=== PATIENT | male | born 1950 | race Caucasian/White ===

== ENCOUNTER 2025-02-24 13:37 | Emergency (ER) | payer OTHER, SELFPAY ==
[2025-02-24 13:49] VITALS: BP 142/80
[2025-02-24 14:20] LABS: Hematocrit 38.7 % (39.0-52.0); Hemoglobin 12.6 g/dL (13.0-18.0); Mean Corp Hgb Conc. 32.6 g/dL (33.0-37.0); Mean Corpuscular Volume 87.4 fL (80.0-94.0); Nucleated Red Blood Cells % 0 % (-); Platelet Count 236 10^3/uL (130-400); Red Cell Dist. Width 14.2 % (11.5-14.5)
[2025-02-24 14:26] LABS: ALT (SGPT) 16 U/L (0-50); AST (SGOT) 21 U/L (17-59); Albumin 4.0 g/dl (3.5-5.0); Alkaline Phosphatase 80 U/L (38-126); Blood Urea Nitrogen 21 mg/dl (9-20); Calcium 9.1 mg/dl (8.4-10.2); Carbon Dioxide 27 mmol/L (22-30); Chloride 106 mmol/L (98-107); Glucose 71 mg/dl (70-99); Potassium 4.2 mmol/L (3.5-5.1); Sodium 138 mmol/L (135-145); Total Protein 6.5 g/dl (6.3-8.2); eGFR > 60.00
[2025-02-24 14:37] LABS: Troponin I < 0.012 ng/ml
[2025-02-24 14:38] LABS: APTT 26.2 Sec (23.4-35.0); INR 0.98; PT 13.3 Sec (11.4-14.6)
[2025-02-24 19:00] VITALS: BP 168/83
[2025-02-24 19:08] VITALS: BMI 33.0
[2025-02-24 19:22] VITALS: BP 151/137
[2025-02-24 19:30] VITALS: BP 146/83
[2025-02-24 20:00] VITALS: BP 157/80
--- NOTE | 2025-02-24 21:55 | ED.CVA ---
History of Present Illness
General
Chief Complaint: CVA/TIA Symptoms
Source: patient and spouse
Exam Limitations: none
Time Seen by Provider: 02/24/25 19:08
Nursing documentation reviewed up to this point in time: agreed with
Onset of Stroke Symptoms
Onset of symptoms known: Yes
Date of onset of symptoms: 02/23/25
History of Present Illness
History of Present Illness:
Patient with history of paroxysmal atrial fibrillation on Xarelto, presents to ED secondary to sudden onset of right arm numbness and weakness, noted last night starting around 8:30 PM. Symptoms were improving but present when he fell asleep at
midnight. When he woke up this morning, his weakness had resolved completely. Since then, patient has not had recurrent symptoms. Of note, patient states that he had not been taking Xarelto for the past 2 weeks for financial reasons. However, it
has been ordered and he should be receiving treatment at home in the next 2 days. Denies headache. Denies dizziness. Denies difficulty with speech or swallowing. Denies difficulty with ambulation. Per spouse, at bedside, patient is currently at
his baseline. Denies previous history of similar symptoms. Last night, when his symptoms started, he had trouble pressing buttons on his phone.
Past History
Past History
ED Past Medical History: CHF and HTN
ED Past Surgical History: Cardiac
Social History
Tobacco: Former smoker
Alcohol: None
Drug: None
Personal:
Living: with family
Employment: Other
Family History
Family History: Unable to obtain
Review of Systems
Review of Systems
Allergies reviewed?: Yes
All Other Systems: ROS reviewed and negative except as documented in HPI and ROS
Constitutional: Reports no symptoms; Denies fever
Respiratory: Reports no symptoms
Cardiac: Reports no symptoms
ABD/GI: Reports no symptoms
Musculoskeletal: Reports no symptoms
Skin: Reports no symptoms
Neurological: Reports weakness and numbness
Phy Exam
Physical Exam
Physical Exam:
Physical Exam
General: no apparent distress, not acutely ill. afebrile
Head: nc/at. eomi
Neck: supple. normal range of motion.
Heart: s1/s2 regular rate and rhythm
Lungs: no acute respiratory distress. clear bilaterally
Abdomen: normal bowel sounds. not tender.
Neuro: alert and oriented x 3. no focal neurological deficits. normal speech. normal gait
Skin: no rash
Psychiatric: well kept. interactive and cooperative
Extremities: no edema. no calf tenderness.
Course
Orders/Labs/Results
Orders:
Orders
02/24/25 13:54
CT Head W/o Iv Contrast Urgent
Comment:
Reason For Exam: Right arm weakness
02/24/25 14:01
Complete Blood Count/With Diff Urgent
Comprehensive Metabolic Panel Urgent
PTT Urgent
Prothrombin Time Urgent
Troponin I Urgent
02/24/25 19:20
Electrocardiogram (*1) Urgent
Reason for Study: TIA/Stroke
EKG- Treatment ONCE
02/24/25 21:53
Rivaroxaban [Xarelto] 20 mg PO NOW STA
02/24/25 21:55
Rivaroxaban [Xarelto] 20 mg PO NOW STA
Abnormal Lab Results
02/24/25
14:01
RBC 4.43 L 10^6/uL
(4.70-6.10)
Hgb 12.6 L g/dL
(13.0-18.0)
Hct 38.7 L %
(39.0-52.0)
MCHC 32.6 L g/dL
(33.0-37.0)
Absolute Lymphs (auto) 1.0 L 10^3/uL
(1.2-3.4)
Absolute Monos (auto) 0.7 H 10^3/uL
(0.1-0.6)
Lymphocytes % 16.9 L %
(20.5-51.1)
Monocytes % 12.3 H %
(1.7-9.3)
BUN 21 H mg/dl
(9-20)
02/24/25 14:01
02/24/25 14:01
Vital Signs
Initial and Last Documented VS:
Initial Vital Signs
Temp Pulse Resp BP Pulse Ox
98.2 F 57 18 142/80 98
02/24/25 13:49 02/24/25 13:49 02/24/25 13:49 02/24/25 13:49 02/24/25 13:49
Last Documented Vital Signs
Temp Pulse Resp BP Pulse Ox
97.9 F 75 19 157/80 98
02/24/25 19:21 02/24/25 20:15 02/24/25 20:15 02/24/25 20:00 02/24/25 21:55
MDM/Problems Addressed
MDM/Problems Addressed:
History and exam concerning for TIA, likely secondary to patient not having taken his Xarelto for the past 2 weeks. Fortunately, patient's symptoms have resolved completely. CT head report reviewed and discussed with patient.
Discussed with on-call neurology, Dr. Marshall, who does not feel that patient would benefit from inpatient evaluation. Recommends obtaining CT angiogram of head and neck prior to discharge, provided there is no critical stenosis noted. Recommend
restarting Xarelto, as previously prescribed, and discontinuing aspirin.
At this time, however, patient would like to be discharged home. Will obtain carotid study as an outpatient via PCP, which I do believe is reasonable. Return to ED with worsening symptoms. As patient currently does not have Xarelto in his
possession, as it is currently being mailed, patient will be given 1 additional dose of Xarelto, to be taken tomorrow.
*Pulse Oximetry
SaO2: 98
Oxygen Mode of Delivery: Room air
Patient hypoxic: no
*EKG
Interpreted by ED Provider?: Yes
EKG Intrepretation Date: 02/24/25
Heart Rate: 66
Rate: normal
Rhythm: sinus
[place]: normal axis
Interval: normal interval
*Critical Care Note
Total Time (30-74mins, 75-104mins- exclusive of procedures): Not Applicable
ED Attending Note
-
Portions of this chart may have been created with voice recognition software.� Occasional wrong word or��sound alike� substitutions may have occurred due to the inherent limitations of voice recognition software.
Discharge Plan
Departure
Patient Disposition: Home (Routine Discharge)
Date of Disposition: 02/24/25
Time of Disposition: 21:55
Patient with high blood pressure during this ER visit?: Yes
Condition: Fair
Discharge Problem:
Brain TIA
Instructions: Transient Ischemic Attack (DC)
Prescriptions:
No Action
albuterol sulfate 90 mcg/actuation Hfa Aerosol Inhaler
2 puff INHALATION R QID PRN (Reason: sob)
Jardiance 10 mg Tablet
10 mg PO DAILY 30 Days Qty: 30 0RF
Xarelto 20 mg Tablet
20 mg PO QPM 30 Days Qty: 30 0RF
furosemide [Lasix] 40 mg tablet
40 mg PO DAILY Qty: 30 0RF
multivitamin Tablet
1 tab PO DAILY Qty: 0 0RF
lisinopril 20 mg Tablet
20 mg PO DAILY Qty: 0 0RF
allopurinol 100 mg Tablet
100 mg PO DAILY Qty: 0 0RF
spironolactone 25 mg Tablet
25 mg PO DAILY Qty: 0 0RF
carvedilol 3.125 mg Tablet
3.125 mg PO BID Qty: 0 0RF
pravastatin 80 mg Tablet
80 mg PO DAILY Qty: 0 0RF
clonazepam [Klonopin] 2 mg Tablet
2 mg PO HS Qty: 0 0RF
Patient Comments:
01/13/2022: last filled 12/10/21, 60 tabs [facility] days from [facility]
Referrals:
Margi Muniz MD [Family Provider, Internal Medicine]
Stand Alone Forms: Return to Work
Activity Restrictions/Additional Instructions:
As discussed, you must speak with your family doctor and obtain carotid ultrasound as an outpatient, as soon as possible. In the meantime, please continue to take Xarelto as discussed. Please consider return to ED with recurrent or different
symptoms.
Interventions
Interventions:
*Risk Screen - Suicide Last Done: 02/24/25 13:49
*General Assessment Last Done: 02/24/25 19:17
*Neglect/Abuse Screening Last Done: 02/24/25 19:17
*ED- Fall Risk Assessment Last Done: 02/24/25 19:17
*ED COVID-19 Vaccine History Last Done: 02/24/25 19:17
*Nursing Disposition Last Done: 02/24/25 22:09
ED- Pulmonary Assessment Last Done: 02/24/25 19:08
ED- Neurological Assessment Last Done: 02/24/25 19:08
ED- Cardiac Assessment Last Done: 02/24/25 19:08
ED Swallowing Screen Last Done: 02/24/25 19:08
Discharge Date and Time
Discharge Date/Time: 02/24/25 22:10
Print Language: ERITREAN
[2025-02-24] MEDS: XARELTO 20 MG PO ×2 (22:01)
== END 2025-02-24 22:10 | disposition home or self-care (01) ==
LOC: EMR 13:37
PROVIDERS: Emergency Medicine; EMERGENCY PHYSICIAN Emergency Medicine; FAMILY PHYSICIAN Student in an Organized Health Care Education/Training Program
DX: G45.9 Transient cerebral ischemic attack, unspecified (principal); I48.0 Paroxysmal atrial fibrillation; Z79.01 Long term (current) use of anticoagulants; I11.0 Hypertensive heart disease with heart failure; I50.9 Heart failure, unspecified; Z87.891 Personal history of nicotine dependence
CPT/HCPCS: 99284; 70450; 80053; 84484; 85025; 85610; 85730; 93005

== ENCOUNTER 2025-02-25 14:12 | Inpatient (IN) | payer OTHER, SELFPAY ==
[2025-02-25 10:38] VITALS: BP 139/70
--- NOTE | 2025-02-25 12:56 | ED.CVA ---
History of Present Illness
General
Chief Complaint: CVA/TIA Symptoms
Source: patient, spouse and family
Time Seen by Provider: 02/25/25 12:30
Onset of Stroke Symptoms
Onset of symptoms known: Yes
Date of onset of symptoms: 02/25/25
Time of onset of symptoms: 02:00
History of Present Illness
History of Present Illness:
This patient is a 74-year-old male presented the emergency department yesterday after noting right arm weakness and numbness the previous evening at around 8:30 PM. He had an extensive workup here, however left without recommended testing. He was
asymptomatic at that time. Of note, patient is on Xarelto due to history of A-fib, but does note that he has missed doses for approximately 2 weeks due to financial reasons. Before discharge last night, he was given a dose of Xarelto which he
usually takes once at nighttime. Patient went home and felt well. He sat down at approximately 1030 to watch the [employer] and awoke at approximately 2 AM and noted that his right arm was 'weak again'. He describes feeling like he cannot
fully work his right arm, he cannot 'grab things', for example had trouble holding a pen and signing with the ambulance. When he noted the symptoms at 2 AM he took another Xarelto, a full dose of aspirin, and a dose of clonazepam. When he awoke at
8 AM this morning, his symptoms were unchanged, and he again took a full dose of aspirin. He denies associated numbness, visual changes, diplopia, amaurosis, change in speech, change in balance, lower extremity weakness, headache, neck pain, chest
pain, dyspnea, or other complaints. Patient denies bleeding.
Past History
Past History
ED Past Medical History: CHF, HTN and Other (Prediabetes, elevated cholesterol)
ED Past Surgical History: Cardiac (Mitral valve repair) and Urological
Social History
Tobacco: Smoker
Alcohol: None
Drug: None
Personal:
Living: with family
Family History
Family History: Unable to obtain
Phy Exam
Physical Exam
Physical Exam:
GENERAL: Alert , in no apparent distress
EYE: pupils equal and reactive
NECK: Supple, no significant adenopathy.
ENT: o/p clr, mmm.
CARDIAC: Regular rate and rhythm .
LUNGS: Clear breath sounds bilaterally, no acute respiratory distress, no wheezes/rales/rhonchi
ABDOMEN: Soft, without focal tenderness, no r/g, no cvat
NEUROLOGICAL: Alert and oriented, right upper extremity mild weakness noted leading to difficulty performing [id number]-[id number] on the right. He is able to do [id number]-[id number] bilaterally, and umzixd-[id number]-[id number] on the left. Cranial nerves II through XII
intact, sensation intact to light touch
SKIN: Warm and dry, skin intact.
MUSCULOSKELETAL: No edema, well perfused.
PSYCH: Normal and appropriate interaction.
Scores
NIH Stroke Score
Level of Consciousness: 0 - Alert
LOC Questions: 0-Answers both correctly
LOC Commands: 0-Performs both correctly
Best Horizontal Gaze: 0-Normal
Visual Herring: 0=Normal, no visual loss
Facial Palsy: 0=Normal, symmetrical
Motor - Right Arm: 1=Drift < 10 seconds
Motor - Left Arm: 0=No drift 10 seconds
Motor - Right Le-No drift 5 seconds
Motor - Left Le-No drift 5 seconds
Limb Ataxia: 1-Present in one limb
Sensation: 0-Normal
Best Language: 0-No aphasia
Dysarthria: 0-Normal
Extinction and Inattention: 0-No abnormality
NIH Total Score:: 2
Course
Orders/Labs/Results
Orders:
Orders
02/25/25 12:52
CT Head & Neck Angio W/wo IV Urgent
Comment:
Reason For Exam: R arm weakness
Cardiac Monitoring- Treatment ONCE
Vital Signs
Initial and Last Documented VS:
Initial Vital Signs
Temp Pulse Resp BP Pulse Ox
98.5 F 61 18 139/70 100
02/25/25 10:38 02/25/25 10:38 02/25/25 10:38 02/25/25 10:38 02/25/25 10:38
Last Documented Vital Signs
Temp Pulse Resp BP Pulse Ox
98.5 F 61 18 139/70 100
02/25/25 10:38 02/25/25 10:38 02/25/25 10:38 02/25/25 10:38 02/25/25 10:38
*Pulse Oximetry
SaO2: 100
Oxygen Mode of Delivery: Room air
Update Note
Update Note:
Patient presents to the Emergency Department with _right upper extremity weakness
Number and Complexity of Problems Addressed at the Encounter
� Chronic conditions affecting care:
� Acute Exacerbation and/or Progression of Chronic Illness:
� Differential Diagnosis includes: But not limited to TIA, CVA, intracranial bleed, neuropathy, etc. etc.
Amount and/or Complexity of Data to be Reviewed and Analyzed
� I performed an independent evaluation of and my interpretation is:
EKG:
CT:
Xrays:
Laboratory Studies: Labs from yesterday reviewed, generally unremarkable
Other:
� Review of other/old records reveals: Patient was admitted January 2022 with acute on chronic systolic heart failure. Noted to have atrial fibrillation at that time.
� Clinical information was obtained by an independent historian: and daughter at bedside who provide further information regarding patient's prior medical history
� Prescriptions/Medications Considered but not given:
� Further testing considered but not performed:
Risk of Complications and/or Morbidity or Mortality of Patient Management
� Social determinants of health affecting care:
� Discussion with other providers (PCP, Hospitalists, Consultants, etc):
� Escalation of care including admission/observation vs risk of discharge considered: Suspect patient suffered a stroke in the left MCA distribution. His symptoms were noted upon waking at 2 AM and therefore he is out of the
'window' for thrombolytics. He also does not qualify based on his NIH score of 2 and that he is currently taking anticoagulation. CTA pending however given similar contraindications, patient not thought to be a IAT candidate. All these options
and medical decision making was discussed with family and they are in agreement/questions answered, agreeable to overnight hospitalization and further evaluation. Case discussed with hospitalist Dr. Mcgill who then referred case to Dr. Mercado.
ED Attending Note
-
Portions of this chart may have been created with voice recognition software.� Occasional wrong word or��sound alike� substitutions may have occurred due to the inherent limitations of voice recognition software.
Discharge Plan
Departure
Patient Disposition: Admit
Date of Disposition: 02/25/25
Time of Disposition: 13:04
Admit to: Telemetry
Presentation/result/management discussed w/ accepting MD/DO: Hospitalist
Condition: Fair
Discharge Problem:
Acute CVA (cerebrovascular accident)
Prescriptions:
No Action
albuterol sulfate 90 mcg/actuation Hfa Aerosol Inhaler
2 puff INHALATION R QID PRN (Reason: sob)
Jardiance 10 mg Tablet
10 mg PO DAILY 30 Days Qty: 30 0RF
Xarelto 20 mg Tablet
20 mg PO QPM 30 Days Qty: 30 0RF
furosemide [Lasix] 40 mg tablet
40 mg PO DAILY Qty: 30 0RF
multivitamin Tablet
1 tab PO DAILY Qty: 0 0RF
lisinopril 20 mg Tablet
20 mg PO DAILY Qty: 0 0RF
allopurinol 100 mg Tablet
100 mg PO DAILY Qty: 0 0RF
spironolactone 25 mg Tablet
25 mg PO DAILY Qty: 0 0RF
carvedilol 3.125 mg Tablet
3.125 mg PO BID Qty: 0 0RF
pravastatin 80 mg Tablet
80 mg PO DAILY Qty: 0 0RF
clonazepam [Klonopin] 2 mg Tablet
2 mg PO HS Qty: 0 0RF
Patient Comments:
01/13/2022: last filled 12/10/21, 60 tabs [facility]
Referrals:
Margi Muniz MD [Family Provider, Internal Medicine]
Interventions
Interventions:
*Risk Screen - Suicide Last Done: 02/25/25 10:38
*General Assessment Last Done: 02/25/25 10:38
*Neglect/Abuse Screening Last Done: 02/25/25 10:38
*ED- Fall Risk Assessment Last Done: 02/25/25 12:24
ED- Pulmonary Assessment Last Done: 02/25/25 12:24
ED- Neurological Assessment Last Done: 02/25/25 12:23
ED Swallowing Screen Last Done: 02/25/25 12:23
Discharge Date and Time
Print Language: MALTESE
[2025-02-25 13:30] LABS: Hematocrit 36.4 % (39.0-52.0); Hemoglobin 12.0 g/dL (13.0-18.0); Mean Corp Hgb Conc. 33.0 g/dL (33.0-37.0); Mean Corpuscular Volume 85.4 fL (80.0-94.0); Nucleated Red Blood Cells % 0 % (-); Platelet Count 228 10^3/uL (130-400); Red Cell Dist. Width 14.1 % (11.5-14.5)
--- NOTE | 2025-02-25 13:34 | W.PN.UPDATE ---
Update Note
Progress Note Update
I personally performed a history and physical exam of the patient and discussed management with the resident. I reviewed the resident's note and agree with the documented findings and plan of care HPI/CC.
74-year-old male presents with ataxia of his right upper extremity over the last day and a half. Yesterday the patient was in the ER with complaints of right upper extremity paresthesias and weakness. The patient been noncompliant with his
Xarelto. He was discharged from the ER (did not comply with recommended testing). Earlier this morning he noted recurrence of his right upper extremity weakness.
139/70, 65, 18, 90.5 �F, 99% RA
Gen: NAD, AAOx3.
Eyes: EOMI, PERRLA, no scleral icterus.
Neck: supple.
CV: RRR, +S1/S2, no m/r/g.
Resp: CTAB, no rales, wheezes, or rhonchi.
Abd: +BS, soft, NT, ND
Skin: No rashes.
Neuro: CN 2-12 intact, RUE 5/5 strength, RUE Ataxia without dysmetria
Psych: Normal mood and affect.
Lab Results
02/25/25
13:23
WBC 6.5
RBC 4.26 L
Hgb 12.0 L
Hct 36.4 L
MCV 85.4
MCH 28.2
MCHC 33.0
RDW 14.1
Plt Count 228
MPV 9.6
Abs Immat Gran (auto) 0.0
Absolute Neuts (auto) 5.0
Absolute Lymphs (auto) 0.9 L
Absolute Monos (auto) 0.5
Absolute Eos (auto) 0.1
Absolute Basos (auto) 0.0
Immature Gran % 0.5
Neutrophils % 76.3 H
Lymphocytes % 13.1 L
Monocytes % 8.1
Eosinophils % 1.4
Basophils % 0.6
Nucleated RBC % 0
CT brain 02/24/25: No acute intracranial abnormality noted. No acute intracranial hemorrhage. Moderate chronic microvascular white matter ischemic disease. Mild to moderate atrophy.
Acute CVA:
- Patient's presenting symptoms are consistent with acute CVA
- History of paroxysmal atrial fibrillation with 2 weeks of noncompliance with Xarelto (until given in ER yesterday)
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 Will attempt to obtain information regarding these wires and hopefully we will be able to proceed with MRI of the
brain.
- cont ASA/statin
- neuro to see
- resume Xarelto if cleared by neuro
- PT/OT/PMR
- tele
- check echo
PAF:
-cont BB
-resume Xarelto once cleared by neuro
Essential HTN:
-cont BB/ACEi/Aldactone
FULL/SCDs, resume Xarelto once cleared by neuro
--- NOTE | 2025-02-25 13:36 | CON.NEURO ---
Addendum entered and electronically signed by Ivan Marshall MD 02/25/25 14:47:
Studies reviewed.
I have personally examined the patient. I reviewed and agree with the LEGAL FILE CLERK's Note.
My addenda:
Awake, alert, interactive. No acute distress.
Speech intact.
Follows 2-step requests w/o difficulty. No tremor.
Extra-ocular movements grossly intact.
Facial movements full and symmetric. Hearing intact to normal conversational volume.
Normal UE movements bilaterally.
Neck: full ROM.
Chest: no dyspnea
Heart: no JVD
Ext: (-) Clubbing, (-) Cyanosis, (-) Edema
IMPRESSIONS/RECOMMENDATIONS:
Abrupt onset of right upper extremity weakness, persistent since its onset. This is mostly suggestive of acute ischemic stroke.
Differential diagnosis includes cervical myelopathy which is less likely
Restart rivaroxaban especially in light of the patient's history of atrial fibrillation
Check cholesterol levels for possible LDL greater than 70; continue Ezetimibe 10 mg daily
Provide thiamine
Check CT arteriogram of head and neck
Check MRI of brain
D/W patient / family
All questions answered.
Will continue to follow pending results.
Original Note:
Documented by User: Judi Rutledge NP 02/25/25 14:28
Neuro Assessment/Plan
Assessment
This patient is a 74-year-old male with past medical history significant for HTN, HLD, afib on Xarelto, everyday smoker presented [facility]DH yesterday and again today for evaluation of RUE weakness.
Head CT: no acute intracranial abnormality noted. No acute intracranial hemorrhage. Moderate chronic microvascular white matter ischemic disease. Mild to moderate atrophy.
Impression: abrupt onset of right upper extremity weakness most likely due to acute ischemic L MCA stroke with several risk factors including current every day smoker, HTN, HLD, afib off anticoagulation x 2 weeks
Plan
-check MRI brain without contrast to evaluate for stroke
-CTA head/neck
-BP goal is normotension.
-continue Xarelto for history of afib
-check hemoglobin A1C. Goal is normoglycemia.
-check LDL with goal <70, unable to tolerate statins continue with Zetia10 mg daily
-start thiamine daily for completeness
-PT/OT evaluations
-continue neurochecks and NIHSS per unit guidelines
-stroke education material to be provided
-smoking cessation advised
All questions encouraged and answered, plan of care discussed with Dr. Marshall, hospitalist, patient and family
Consultation
Order
Date of Consultation: 02/25/25
Requesting Provider: hospitalist
Reason for Consult: RUE weakness
Subjective/Objective
Subjective Data
Date of Service: February 25, 2025
This patient is a 74-year-old male with past medical history significant for HTN, HLD, afib on Xarelto, everyday smoker presented PMDH yesterday after noting right arm weakness and numbness the previous evening at around 8:30 PM. He had an
extensive workup here, however left without recommended testing. He was asymptomatic at that time. Of note, patient is on Xarelto due to history of A-fib, but does note that he has missed doses for approximately 2 weeks due to financial reasons.
Before discharge last night, he was given a dose of Xarelto which he usually takes once at nighttime. Patient went home and felt well. He was given Xarelto last night at 10pm. He sat down at approximately 1030 to watch the [employer] and awoke
at approximately 2 AM and noted that his right arm was 'weak again'. He describes feeling like he cannot fully work his right arm, he cannot 'grab things', for example had trouble holding a pen and signing with the ambulance. When he noted the
symptoms at 2 AM he took another Xarelto, a full dose of aspirin, and a dose of clonazepam. When he awoke at 8 AM this morning, his symptoms were unchanged, and he again took a full dose of aspirin. He denies associated numbness, visual changes,
diplopia, amaurosis, change in speech, change in balance, lower extremity weakness, headache, neck pain, chest pain, dyspnea, or other complaints. Patient denies bleeding. He is on Zetia 10 mg daily, he is unable to tolerate statins. Current NIHSS
0, not a TNK candidate due to being on anticoagulation, low NIHSS and out of window.
Objective Data
Vital Signs
Temp Pulse Resp BP Pulse Ox
98.5 F 65 18 139/70 99
02/25/25 10:38 02/25/25 13:12 02/25/25 10:38 02/25/25 10:38 02/25/25 13:12
Lab Results
02/25/25 13:23
Patient Allergies
No Known Allergies Allergy (Verified 02/25/25 10:37)
CVA Assessment
Onset of Stroke Symptoms
Onset of symptoms known: Yes
Date of onset of symptoms: 02/25/25
Time of onset of symptoms: 02:00
Time pt last seen normal is known: Yes
Date last time pt seen normal: 02/24/25
Time last time pt seen normal: 22:30
NIH Stroke Score
Level of Consciousness: 0 - Alert
LOC Questions: 0-Answers both correctly
LOC Commands: 0-Performs both correctly
Best Horizontal Gaze: 0-Normal
Visual Herring: 0=Normal, no visual loss
Facial Palsy: 0=Normal, symmetrical
Motor - Right Arm: 0=No drift 10 seconds
Motor - Left Arm: 0=No drift 10 seconds
Motor - Right Le-No drift 5 seconds
Motor - Left Le-No drift 5 seconds
Limb Ataxia: 0-Absent
Sensation: 0-Normal
Best Language: 0-No aphasia
Dysarthria: 0-Normal
Extinction and Inattention: 0-No abnormality
NIH Total Score:: 0
Tenecteplase Contraindications
Inclusion and Exclusion criteria reviewed: Yes
Reasons for NON-Tx with Thrombolytics ABSOLUTE Exclusions: Patient taking oral anticoagulant and last dose within 48 hours and Time-out of window
IAT Contraindications: >6 hrs from onset/last seen normal and NIHSS < 6
Physical Exam
-
General: Well Developed, No Apparent Distress and Comfortable
Eyes: PERRLA
HEENT: Normocephalic, Atraumatic and Anicteric
Neck: Full Range of Motion
Respiratory: No Dyspnea
Cardiac: No JVD
GI: Non-distended
Skin: Unremarkable
Extremities: No Clubbing, No Cyanosis and No Edema
Psych: Unremarkable
Extended Neurological Exam
Mood & Affect: Mood Unremarkable
Attention Span & Concentration: Awake, Alert, Interactive and No Difficulty with 2 Step Request
Memory: Unremarkable
Tremor: Hand Tremor Absent and Head Tremor Absent
Involuntary Movement: None
Speech: Quality Unremarkable, Quantity Unremarkable and Rate of Production Unremarkable
Cranial Nerve II: Left Eye: Visual Herring Intact
Cranial Nerve II: Right Eye: Visual Herring Intact
Cranial Nerves III, IV, : Extraocular Movement: Other (upgaze restriction )
Cranial Nerve VII: Facial Symmetry: Normal Facial Symmetry
Cranial Nerve VIII: Hearing: Unremarkable Hearing to Normal Conversational Volume
Cranial Nerves IX, X: Palate Movement: Palate Elevation Symmetric
Cranial Nerve XII: Tongue Protusion: Midline
Muscle Strength, Overall: Reduced on Right (4+/5 on RUE)
Pronator Drift: No Drift in Upper Extremities and No Drift in Lower Extremities
Touch Sensation: Unremarkable and Double Simultaneous Stimulation Unremarkable
Coordination: YURI Satellites around Right and Trgv-Lkin-Glei movements intact bilaterally
Data Reviewed
-
CT Head: Report Reviewed and Image Reviewed
Labs: Report Reviewed
Lipid Profile: Ordered
HgbA1C: Ordered
Reviewed with: Physician, Patient and Family
Old Records: Summarized
Medications
-
Home Medications
�Medication �Instructions �Recorded
allopurinol 100 mg tablet 100 mg PO DAILY Gout #0 tabs 01/16/22
carvedilol 3.125 mg tablet 3.125 mg PO BID Blood pressure #0 01/16/22
tabs
clonazepam 2 mg tablet (Klonopin) 2 mg PO HS Mental Health/Anxiety 01/16/22
#0 tabs
furosemide 40 mg tablet (Lasix) 40 mg PO DAILY Fluid 01/16/22
retention/Swelling #30 tabs
lisinopril 20 mg tablet 20 mg PO DAILY Blood pressure #0 01/16/22
tabs
multivitamin 1 tab PO DAILY Supplement #0 tabs 01/16/22
rivaroxaban 20 mg tablet (Xarelto) 20 mg PO QPM Blood clot 01/16/22
prevention/tx 30 days #30 tabs
spironolactone 25 mg tablet 25 mg PO DAILY Blood pressure #0 01/16/22
tabs
aspirin 325 mg tablet 325 mg PO DAILYPRN PRN mild pain 02/25/25
clonazepam 2 mg tablet 2 mg PO DAILYPRN PRN anixety 02/25/25
coQ10 (ubiquinol) 100 mg capsule 100 mg PO DAILY 02/25/25
Past History
Past History
ED Past Medical History: CHF, HTN and Other (Prediabetes, elevated cholesterol)
ED Past Surgical History: Cardiac (Mitral valve repair) and Urological
Family/Social History
Tobacco: Smoker
Alcohol: None
Drug: None
Personal:
Living: with family
Employment: Other
Family History: Unable to obtain

Documented by User: Ivan Marshall MD 02/25/25 14:45
CVA Assessment
NIH Stroke Score
NIH Total Score:: 0
[2025-02-25 13:51] LABS: ALT (SGPT) 17 U/L (0-50); AST (SGOT) 21 U/L (17-59); Albumin 3.9 g/dl (3.5-5.0); Alkaline Phosphatase 76 U/L (38-126); Blood Urea Nitrogen 23 mg/dl (9-20); Calcium 9.2 mg/dl (8.4-10.2); Carbon Dioxide 29 mmol/L (22-30); Chloride 105 mmol/L (98-107); Glucose 105 mg/dl (70-99); Potassium 4.2 mmol/L (3.5-5.1); Sodium 137 mmol/L (135-145); Total Protein 6.4 g/dl (6.3-8.2); eGFR > 60.00
[2025-02-25 14:00] LABS: HDL Cholesterol 37 mg/dl; LDL Cholesterol, Calculated 137 mg/dl; Very Low Density Lipoprotein 16 mg/dl (0-30)
--- NOTE | 2025-02-25 14:17 | HPS.HSE ---
Family Physician
-
Family Physician: Margi Muniz MD
Chief Complaint
-
Right arm weakness
History of Present Illness
74-year-old male with past medical history of atrial fibrillation on Xarelto, HFrEF, hypertension, hyperlipidemia, restless leg syndrome, gout presents to the hospital for right arm weakness. He was recently in the ER on 02/24 for the same
complaint. On Monday night, he noticed some right arm weakness where he was not able to grab the remote or type on his phone. Symptoms started to improve when he went to bed. The next morning, his weakness had resolved. Of note, he has not been
taking his Xarelto for the past 2 weeks due to financial issues. He still decided to come into the ER that day because he wanted to rule out a 'brain bleed.' In the ER he was given Xarelto and a head CT was done which was unremarkable. The
patient was upset and wanted to go home. He was provided a prescription to do an outpatient carotid ultrasound for further evaluation as he was feeling well. After going home, around 10:30 he started to notice some of the weakness returning while
he was watching the [employer] game. The symptoms continued he took another dose of xarelto, a full dose of aspirin and a dose of clonazepam. He woke up this morning around 8am with no change in right arm weakness. He took another full dose of aspirin.
He denies any current numbness, tingling, blurry vision, weakness in his lower extremities, dizziness, changes in speech, feelings like he is going to pass out, chest pain, heart palpitations, or SOB.
In the ED, his BP was 142/80, HR 57, RR 18, afebrile satting well on room air. Mild anemia noted with hg 12 but otherwise unremarkable blood work. Head and neck CTA were ordered by ED and neurology was consulted. He is not a TNK candidate as he is
outside the time window. EKG reveals sinus arrythmia.
Medical History
Past Medical History
Past Medical History: Reports Other (per below )
Additional Past Medical History:
Heart failure with improved ejection fraction (HFimpEF) (echo 01/31 35-40% EF, echo 02/01 55-60%)
Paroxysmal atrial fibrillation on Xarelto
HTN
HLD
Restless leg syndrome
Gout
Tobacco abuse
Past Surgical History: Reports Other (Per below )
Additional Past Surgical History:
Mitral valve repair 08/1999
Bladder surgery
Maze procedure 1999
Social History
Tobacco: Smoker (Since age 14 about 1 PPD, did have 10 year period he quit. )
Alcohol: Occasional (1-2 bourbons a day )
Drug: None
Personal:
Living: With Family
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 )
Family History
Family History: Other (Father - CAD, lung cancer, brain cancer. Mother - DM, CVA, CAD, dementia)
Allergies / Home Medications
Allergies reflects when Allergies were last updated in [facility].
Home Medications with original date entered in [facility]
Allergy/Medication List:
Allergies
Allergy/AdvReac Type Severity Reaction Status Date / Time
No Known Allergies Allergy Verified 02/25/25 10:37
Home Medications
allopurinol 100 mg tablet 100 mg PO DAILY Gout #0 tabs 01/16/22
carvedilol 3.125 mg tablet 3.125 mg PO BID Blood pressure #0 tabs 01/16/22
clonazepam 2 mg tablet (Klonopin) 2 mg PO HS Mental Health/Anxiety #0 tabs 01/16/22
furosemide 40 mg tablet (Lasix) 40 mg PO DAILY Fluid retention/Swelling #30 tabs 01/16/22
lisinopril 20 mg tablet 20 mg PO DAILY Blood pressure #0 tabs 01/16/22
multivitamin 1 tab PO DAILY Supplement #0 tabs 01/16/22
rivaroxaban 20 mg tablet (Xarelto) 20 mg PO QPM Blood clot prevention/tx 30 days #30 tabs 01/16/22
spironolactone 25 mg tablet 25 mg PO DAILY Blood pressure #0 tabs 01/16/22
aspirin 325 mg tablet 325 mg PO DAILYPRN PRN mild pain 02/25/25
clonazepam 2 mg tablet 2 mg PO DAILYPRN PRN anixety 02/25/25
coQ10 (ubiquinol) 100 mg capsule 100 mg PO DAILY 02/25/25
Review of Systems
-
History Source: Patient
Constitutional: Reports No Symptoms
EENT: Reports Runny Nose (Has allergies )
Respiratory: Reports Cough (Slight cough ongoing since he had bronchitis a few weeks back )
Cardiac: Reports No Symptoms
Abdomen/GI: Reports No Symptoms
Skin: Reports No Symptoms
Neurological: Reports Weakness (Right arm weakness)
Psych: Reports Calm
Physical Exam
Vital Signs
Vital Signs
Temp Pulse Resp BP Pulse Ox
98.5 F 65 18 139/70 99
02/25/25 10:38 02/25/25 13:12 02/25/25 10:38 02/25/25 10:38 02/25/25 13:12
Physical Exam
General: No Apparent Distress and Comfortable
HEENT: NormoCephalic
Respiratory: Clear
Cardiac: S1/S2, Regular Rhythm and Other (No murmurs, rubs or gallops, no carotid bruits )
GI: Soft, Non Tender, Non Distended and Normal Bowel Sounds
Musculoskeletal: No Cyanosis and Other (Slight bilateral lower extremity pitting edema)
Skin: Warm and Dry
Neuro: AO x 3, Cranial Nerves Intact, No Sensory Deficits and Other (4/5 right arm muscle strength, NIH 0, RUE ataxia and decreased proprioception (had difficulty finding nose with right hand with eyes closed), sensation intact)
Psych: Calm
Laboratory Results
-
02/25/25 13:23
02/25/25 13:23
Laboratory Results
Total Bilirubin 0.9 mg/dl (0.2-1.3) 02/25/25 13:23
AST 21 U/L (17-59) 02/25/25 13:23
ALT 17 U/L (0-50) 02/25/25 13:23
Alkaline Phosphatase 76 U/L (38-126) 02/25/25 13:23
Impression/Plan
-
IMPRESSION:
74 y/o male with pmhx a.fib off Xarelto for the past two weeks presents with RUE weakness.
Imaging:
CT 02/24/2025:
No acute intracranial abnormality noted. No acute intracranial hemorrhage.
Moderate chronic microvascular white matter ischemic disease. Mild to moderate atrophy.
PLAN:
RUE weakness - likely CVA vs TIA
--No TNK as outside time window
--Already on xaralto for anticoagulation and took full dose aspirin this morning
--HgA1c .7, LDL 137
--Intolerant of statins, patient stated he was on zetia but not in med rec - zetia 10 daily
--Goal LDL <70
--q4h neuro checks
--Head and neck CTA pending
--Brain MRI pending - did state he has 'metal in his heart' with prior mitral valve replacement in 08/1999- appreciate MRI team to eval whether he is MRI appropriate
--Thiamine per neurology for completeness
--Appreciate neurology
--PT/OT
Paroxysmal atrial fibrillation
--s/p Maze 1999, Primary training project manager is Dr. Pittman
--EKG sinus arrhythmia
--Continue Xarelto and carvedilol
HFimpEF - not in exacerbation
--echo 01/31 35-40% EF, echo 02/01 55-60%
--Continue home carvedilol, lisinopril, spironolactone, lasix
--Daily weights
HTN
--carvedilol, lisinopril, spironolactone
Mild normocytic anemia
--Check iron studies, B12 pending
Regular alcohol use
--1 to 2 small glasses of bourbon a day
--Patient stated it was 1-2 glasses a week, but stated more like 1-2 per day...
--Monitor for symptoms of withdrawal
Tobacco use disorder
--About 50 pack year history
--Recommend outpatient low dose chest CT
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
#Mitral valve repair 1999 - unsure if metal valve is MRI compatible - appreciate pre-MRI screening team
#Gout - allopurinol
#Restless leg syndrome - clonazepam
#HLD - zetia
DVT - xarelto
DNR
[2025-02-25 14:44] LABS: Glycohemoglobin (HgbA1c) 5.7 % (4.0-5.6)
[2025-02-25 14:49] LABS: TSH 3.16 uIU/ml (0.47-4.68)
[2025-02-25 15:01] VITALS: BP 155/78
[2025-02-25 15:08] LABS: Vitamin B12 688 pg/ml (239-931)
[2025-02-25 15:38] VITALS: BP 144/82
[2025-02-25 17:41] LABS: Iron 69 ug/dl (49-181)
[2025-02-25 17:50] LABS: Total Iron Binding Capacity 309 ug/dl (261-462)
[2025-02-25] MEDS: THIAMINE INJECTION 100 MG IV (17:58)
[2025-02-25] MEDS: XARELTO 20 MG PO (17:59)
[2025-02-25 18:17] LABS: Ferritin 36.1 ng/ml (17.9-464.0)
[2025-02-25] MEDS: COREG 3.125 MG PO (20:04)
[2025-02-25 20:06] VITALS: BP 124/59
[2025-02-25] MEDS: ZETIA 10 MG PO (22:18)
[2025-02-25] MEDS: KLONOPIN 2 MG PO (22:18)
[2025-02-25 23:37] VITALS: BP 126/68
[2025-02-26 03:21] VITALS: BP 108/64
--- NOTE | 2025-02-26 03:40 | W.PN.UPDATE ---
Update Note
Progress Note Update
code status updated to Full code per patient request.
--- NOTE | 2025-02-26 03:45 | DOWNTIME ---
There was a [employer] Client [employer] Instructor Downtime on 02/26/2025 from 0100 to 02/26/2025 at 0215. Downtime documentation of patient's care, including medication administrations, has been reconciled in the electronic record per guidelines. Refer to the
patient's paper chart under the miscellaneous tab to see printed paper medication records and downtime forms.
[2025-02-26 06:00] VITALS: BMI 31.5
[2025-02-26 07:00] VITALS: BP 135/65
[2025-02-26 07:43] LABS: HDL Cholesterol 31 mg/dl; LDL Cholesterol, Calculated 125 mg/dl; Very Low Density Lipoprotein 26 mg/dl (0-30)
--- NOTE | 2025-02-26 08:01 | W.PN.HOSP.TC ---
Today's Communication/Plan
-
Carotid US
Brain MRI
Assessment / Plan
Assessment / Plan
IMPRESSION:
74 y/o male with pmhx a.fib off Xarelto for the past two weeks presents with RUE weakness.
Imaging:
CT 02/24/2025:
No acute intracranial abnormality noted. No acute intracranial hemorrhage.
Moderate chronic microvascular white matter ischemic disease. Mild to moderate atrophy.
Head/neck CTA 02/25/2025:
Calcific atherosclerotic changes involving the carotid bulbs and proximal internal carotid arteries bilaterally likely without hemodynamically significant stenosis, suggest Carotid ultrasound for more complete atherosclerotic plaque evaluation.
Dominant left vertebral artery. No findings to suggest internal carotid artery or vertebral artery dissection bilaterally.
Next findings to suggest proximal intracranial arterial stenosis bilaterally.
Echo 02/25/2025:
1. Mild to moderate left ventricular hypertrophy with preserved systolic function, ejection fraction 57%.
2. Status post mitral valve repair, peak/mean gradients 35/13 mmHg with mild mitral regurgitation. The mitral valve area is 1.9 cm 2 by pressure half-time.
3. Aortic sclerosis with trace aortic regurgitation.
4. Mildly dilated right ventricle with preserved systolic function, pulmonary artery systolic pressure is 47 mmHg.
5. In January 2023 the ejection fraction was 55 to 60%. The mean mitral valve gradient was 7 mmHg with mild mitral regurgitation, and the pulmonary artery systolic pressure was 42-44 mmHg.
PLAN:
RUE weakness - likely CVA vs TIA
--No TNK as outside time window
--Xarelto for anticoagulation as already on it for a.fib
--HgA1c 5.7, LDL 137
--Intolerant of statins, patient stated he was on zetia but not in med rec - zetia 10 daily
--Goal LDL <70
--q4h neuro checks
--BP goal normotensive
--Echo - EF 57%, pulm artery pressure 47mmHg
--Head and neck CTA likely no significant carotid stenosis - reccomends US
--Carotid US pending per neuro
--Brain MRI pending - did state he has 'metal in his heart' with prior mitral valve replacement in 08/1999- appreciate MRI team to eval whether he is MRI appropriate
--Thiamine per neurology for completeness
--Appreciate neurology
--PT/OT
Paroxysmal atrial fibrillation
--s/p Maze 1999, Primary director home health is Dr. Pittman
--EKG sinus arrhythmia
--Continue Xarelto and carvedilol
HFimpEF - not in exacerbation
--echo 01/31 35-40% EF, echo 02/01 55-60%
--02/25/25 echo EF 57%, pulm artery pressure 47mmHg
--Continue home carvedilol, lisinopril, spironolactone, lasix
--Daily weights
HTN
--carvedilol, lisinopril, spironolactone
Mild normocytic anemia
--B12 and iron stores adequate
--Recommend f/u with PCP for further eval. Discussed importance of colonoscopy.
Regular alcohol use
--1 to 2 small glasses of bourbon a day
--Patient stated it was 1-2 glasses a week, but stated more like 1-2 per day...
--Monitor for symptoms of withdrawal
Tobacco use disorder
--About 50 pack year history
--Recommend outpatient low dose chest CT
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
#Mitral valve repair 1999 - unsure if metal valve is MRI compatible - appreciate pre-MRI screening team
#Gout - allopurinol
#Restless leg syndrome - clonazepam
#HLD - zetia
#Recent bronchitis - residual cough and occasional wheezing - albuterol inhaler
DVT - Xarelto
Full code
Anticipated Discharge: Within 24 hours
Subjective/Interval History
-
Date of Service: February 26, 2025
No complaints overnight. He states his arm feels mostly the same. Did change his mind that he wanted to be full code instead of DNR.
Objective Data
-
Vital Signs:
Vital Signs
Temp Pulse Resp BP Pulse Ox
97.9 F 62 16 108/64 97
02/26/25 03:21 02/26/25 03:21 02/26/25 03:21 02/26/25 03:21 02/26/25 03:21
I&O
02/25/25 02/26/25 02/27/25
06:59 06:59 06:59
Intake Total 240 / 240
Balance 240 / 240
Review of Systems
-
History Source: Patient
Respiratory: Reports Cough (Related to recent bronchitis a few weeks ago) and Wheezing
Cardiac: Reports No Symptoms
Abdomen/GI: Reports No Symptoms
Genitourinary: Reports No Symptoms
Neuro: Reports Weakness
Hematologic / Lymphatic: Reports No Symptoms
Physical Exam
-
General: No Apparent Distress and Comfortable
HEENT: Normocephalic and PERRLA
Respiratory: Wheezes
Cardiac: Regular Rhythm and S1/S2
GI: Soft, Nontender, Nondistended and Normal Bowel Sounds
Musculoskeletal: No Cyanosis and No Edema
Skin: Warm
Neuro: AO x 3 and Other (4+/5 strength right arm, NIH 0, CNII-XII intact, ataxia and decreased proprioception in RUE. )
Psych: Calm
[2025-02-26] MEDS: KLONOPIN 2 MG PO (08:25)
[2025-02-26] MEDS: LASIX 40 MG PO (08:26)
[2025-02-26] MEDS: ALDACTONE 25 MG PO (08:26)
[2025-02-26] MEDS: ZESTRIL 20 MG PO (08:26)
[2025-02-26] MEDS: ZYLOPRIM 100 MG PO (08:27)
[2025-02-26] MEDS: THIAMINE INJECTION 100 MG IV (08:27)
[2025-02-26] MEDS: COREG 3.125 MG PO (08:28)
--- NOTE | 2025-02-26 08:40 | W.PN.UPDATE ---
Update Note
Progress Note Update
I saw and evaluated the patient. I reviewed the resident�s note and agree with findings and plan as documented in the resident�s note.
No new complaints.
Gen: NAD, AAOx3.
Eyes: EOMI, PERRLA, no scleral icterus.
Neck: supple.
CV: remains RRR, +S1/S2, no m/r/g.
Resp: remains CTAB, no rales, wheezes, or rhonchi.
Abd: +BS, soft, NT, ND
Skin: No rashes.
Neuro: CN 2-12 intact, RUE 5/5 strength, RUE Ataxia without dysmetria (improved from yesterday)
Psych: Normal mood and affect.
CT brain 02/24/25: No acute intracranial abnormality noted. No acute intracranial hemorrhage. Moderate chronic microvascular white matter ischemic disease. Mild to moderate atrophy.
CTA head/neck: Calcific atherosclerotic changes involving the carotid bulbs and proximal internal carotid arteries bilaterally likely without hemodynamically significant stenosis, suggest Carotid ultrasound for more complete atherosclerotic plaque
evaluation. Dominant left vertebral artery. No findings to suggest internal carotid artery or vertebral artery dissection bilaterally. Next findings to suggest proximal intracranial arterial stenosis bilaterally.
Echo:
1. Mild to moderate left ventricular hypertrophy with preserved systolic function, ejection fraction 57%.
2. Status post mitral valve repair, peak/mean gradients 35/13 mmHg with mild mitral regurgitation. The mitral valve area is 1.9 cm 2 by pressure half-time.
3. Aortic sclerosis with trace aortic regurgitation.
4. Mildly dilated right ventricle with preserved systolic function, pulmonary artery systolic pressure is 47 mmHg.
5. In January 2023 the ejection fraction was 55 to 60%. The mean mitral valve gradient was 7 mmHg with mild mitral regurgitation, and the pulmonary artery systolic pressure was 42-44 mmHg.
MRI brain: Small left posterior frontal lobe acute infarct. Tiny para midline left parietal cortical infarct. No mass effect. No midline shift. Moderate to advanced chronic microvascular white matter ischemic change. Mild to moderate atrophy. There
is a short segment of the right V4 vertebral artery segment with subtle loss of normal intraluminal flow void, suggesting focal plaque formation with stenosis/occlusion. This is also suggested in retrospect on CT angiography performed the previous
day.
CUS: Minimal calcified carotid bulb plaque on each side, measurements suggestive of less than 50% stenosis on each side
Acute CVA:
-imaging above
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
-cont Xarelto, encourage compliance
-pt with statin intolerance, cont Zetia
-Neurology saw the patient consultation and has cleared the patient for discharge (discussed over [employer])
-PT/OT/PMR
Other problems:
Tobacco abuse disorder: Counseled on smoking cessation
PAF: cont BB/Xarelto
Essential HTN: cont BB/ACEi/Aldactone
FULL/Xarelto
Total time spent on d/c = 31 min. This included today's physical exam, progress note, review of laboratory and diagnostic data, preparation of discharge documents and prescriptions, and discussions about the pt's hospital course and discharge plan
with the patient and other bilingual medical receptionist involved in the patient's care.
--- NOTE | 2025-02-26 10:50 | W.PN.NEURO.1 ---
Today's Communication / Plan
-
Check carotid ultrasound as per radiology suggestion, CTA of head and neck was unrevealing
Neuro Assessment/Plan
Assessment
This patient is a 74-year-old male with past medical history significant for HTN, HLD, afib on Xarelto, everyday smoker presented [facility] yesterday and again today for evaluation of RUE weakness.
Head CT: no acute intracranial abnormality noted. No acute intracranial hemorrhage. Moderate chronic microvascular white matter ischemic disease. Mild to moderate atrophy.
MRI:
Impression: abrupt onset of right upper extremity weakness most likely due to acute ischemic L MCA stroke with several risk factors including current every day smoker, HTN, HLD, afib off anticoagulation x 2 weeks
Plan
Check carotid ultrasound as per radiology suggestion, CTA of head and neck was unrevealing
BP goal is normotension.
continue Xarelto for history of afib
Goal is normoglycemia.
Continue Zetia10 mg daily
Initiated thiamine daily for completeness
PT/OT evaluations
smoking cessation advised
Will follow as needed
Subjective/Objective
Subjective Data
Date of Service: February 26, 2025
Objective Data
Vital Signs
Temp Pulse Resp BP Pulse Ox
36.5 C 70 18 135/65 98
02/26/25 07:00 02/26/25 07:00 02/26/25 07:00 02/26/25 07:00 02/26/25 07:00
Lab Results
02/25/25 13:23
02/25/25 13:23
Sodium 137 mmol/L (135-145) 02/25/25 13:23
Potassium 4.2 mmol/L (3.5-5.1) 02/25/25 13:23
BUN 23 mg/dl (9-20) H 02/25/25 13:23
Glucose 105 mg/dl (70-99) H 02/25/25 13:23
Calcium 9.2 mg/dl (8.4-10.2) 02/25/25 13:23
LDL Cholesterol, Calc 125 mg/dl 02/26/25 06:52
Vitamin B12 688 pg/ml (599-931) 02/25/25 13:23
Patient Allergies
No Known Allergies Allergy (Verified 02/25/25 10:37)
Data Reviewed
-
MRI Head: Report Reviewed and Image Reviewed
Labs: Report Reviewed
Reviewed with: Physician and Nurse Practioner
Old Records: Summarized
Past History
Past History
ED Past Medical History: CHF, HTN, Hypercholesterolemia, NIDDM and Other (Restless leg syndrome)
ED Past Surgical History: Cardiac (Mitral valve repair) and Urological
Social History
Tobacco: Smoker
Alcohol: None
Drug: None
Personal:
Living: with family
Employment: Other
Family History
Family History: Other (Reviewed, and noncontributory)
Medications
-
Medications:
Generic Name Dose Route Start Last Admin
Trade Name Freq PRN Reason Stop Dose Admin
Acetaminophen 650 mg 02/25/25 15:27
Acetaminophen 650 Mg Rectal Suppository RECTAL 03/25/25 15:26
Q4HPRN PRN
GREY, mild pain, or temp >100.4F
Acetaminophen 650 mg 02/25/25 15:27
Acetaminophen 325 Mg Tablet PO 03/25/25 15:26
Q4HPRN PRN
GREY, mild pain, or temp >100.4F
Albuterol 2 puff 02/26/25 08:04
Albuterol Hfa [90 Mcg/Dose] Inhaler INH
R Q4HPRN PRN
wheezing, cough
Protocol
Allopurinol 100 mg 02/26/25 08:00 02/26/25 08:27
Allopurinol 100 Mg Tablet PO 03/26/25 07:59 100 mg
DAILY WOJCIECH Administration
Carvedilol 3.125 mg 02/25/25 20:00 02/26/25 08:28
Carvedilol 3.125 Mg Tablet PO 03/25/25 19:59 3.125 mg
BID WOJCIECH Administration
Clonazepam 2 mg 02/25/25 15:39 02/26/25 08:25
Clonazepam 1 Mg Tablet PO 03/25/25 15:38 2 mg
DAILYPRN PRN Administration
anixety, restless leg, MRI
Clonazepam 2 mg 02/25/25 22:00 02/25/25 22:18
Clonazepam 1 Mg Tablet PO 03/25/25 21:59 2 mg
HS WOJCIECH Administration
Ezetimibe 10 mg 02/25/25 22:00 02/25/25 22:18
Ezetimibe (Zetia) 10 Mg Tablet PO 03/25/25 21:59 10 mg
HS WOJCIECH Administration
Furosemide 40 mg 02/26/25 08:00 02/26/25 08:26
Furosemide 40 Mg Tablet PO 03/26/25 07:59 40 mg
DAILY WOJCIECH Administration
Lisinopril 20 mg 02/26/25 08:00 02/26/25 08:26
Lisinopril 20 Mg Tablet PO 03/26/25 07:59 20 mg
DAILY WOJCIECH Administration
Rivaroxaban 20 mg 02/25/25 18:00 02/25/25 17:59
Rivaroxaban 20 Mg Tablet PO 03/25/25 17:59 20 mg
QPM WOJCIECH Administration
Sodium Chloride 0 flush 02/25/25 16:00
Sodium Chloride 0.9% (Flush) Syringe IV 03/25/25 15:59
PER PROTOCOL WOJCIECH
Spironolactone 25 mg 02/26/25 08:00 02/26/25 08:26
Spironolactone 25 Mg Tablet PO 03/26/25 07:59 25 mg
DAILY WOJCIECH Administration
Thiamine HCl 100 mg 02/25/25 16:00 02/26/25 08:27
Thiamine (100 Mg/Ml) 2 Ml Vial IV 03/25/25 15:59 100 mg
DAILY WOJCIECH Administration
[2025-02-26 11:00] VITALS: BP 118/65
--- NOTE | 2025-02-26 11:30 | W.DCSUMMARY ---
Discharge Summary
Discharge Data
Date of Admission: 02/25/25
Date of Discharge: 02/26/25
-
Pending Results: No
Hospital Course
Primary diagnosis:
Acute cerebrovascular accident - Small left posterior frontal lobe acute infarct.
Secondary diagnosis:
Paroxysmal atrial fibrillation
HFimpEF
Hypertension
Mild normocytic anemia
Tobacco use disorder
Mitral valve repair
Gout
Restless leg syndrome
Hyperlipidemia
Recent bronchitis
Hospital course:
74-year-old male with past medical history of paroxysmal atrial fibrillation on Xarelto for the last 2 weeks presented to the ER with right upper extremity weakness. He had come to the ER the day prior for the same symptoms. Head CT was normal and
symptoms resolved. Patient was adamant about going home so he went home with instructions to take his Xarelto regularly and follow-up carotid ultrasound in the outpatient setting. In the evening, the symptoms returned and the next morning he came
back to the ER. Stroke workup was started and neurology was consulted. He was outside the TNK window and as he was already on Xarelto, there was no need for aspirin and Plavix. The next day, brain MRI revealed small left posterior frontal lobe
acute infarct with a tiny paramidline left parietal cortical infarct. Head and neck ultrasound revealed less than 50% carotid stenosis bilaterally. Initial LDL was 137, repeat 125. HgA1c 5.7. Repeat echo was done with EF 57%. Patient stated he has
a history of statin intolerance and was on Zetia 10 however not a part of his med rec. Restarted him on Zetia 10 with instructions to follow-up with PCP for further cholesterol management. He was also noted to have slight normocytic anemia with
normal B12 and iron panel (B12 688, %sat 22, ferritin 36.1, iron 69, TIBC 309). He was advised to follow-up with his PCP for further evaluation. He was also provided thiamine for completeness.
Today, patient is clinically stable for discharge. He has ongoing right upper extremity slight weakness, ataxia and decreased proprioception. He was instructed to continue to take Xarelto and Zetia. Smoking cessation was advised along with
low-dose chest CT for lung cancer screening in the outpatient setting. Colon cancer screening was advised for his anemia. With elevated pulmonary artery pressures he may also benefit from VERO screening.
Imaging:
Head and neck CTA 02/25/2025:
Calcific atherosclerotic changes involving the carotid bulbs and proximal internal carotid arteries bilaterally likely without hemodynamically significant stenosis, suggest Carotid ultrasound for more complete atherosclerotic plaque evaluation.
Dominant left vertebral artery. No findings to suggest internal carotid artery or vertebral artery dissection bilaterally.
Next findings to suggest proximal intracranial arterial stenosis bilaterally.
Carotid ultrasound 02/26/2025:
Minimal calcified carotid bulb plaque on each side, measurements suggestive of less than 50% stenosis on each side as per modified Society of Radiologists in Ultrasound consensus criteria (IAC carotid criteria white paper, 2020).
Brain MRI 02/26/2025:
Small left posterior frontal lobe acute infarct. Tiny para midline left parietal cortical infarct.
No mass effect. No midline shift.
Moderate to advanced chronic microvascular white matter ischemic change.
Mild to moderate atrophy.
There is a short segment of the right V4 vertebral artery segment with subtle loss of normal intraluminal flow void, suggesting focal plaque formation with stenosis/occlusion. This is also suggested in retrospect on CT angiography performed the
previous day.
Echocardiogram 02/25/2025:
1. Mild to moderate left ventricular hypertrophy with preserved systolic function, ejection fraction 57%.
2. Status post mitral valve repair, peak/mean gradients 35/13 mmHg with mild mitral regurgitation. The mitral valve area is 1.9 cm 2 by pressure half-time.
3. Aortic sclerosis with trace aortic regurgitation.
4. Mildly dilated right ventricle with preserved systolic function, pulmonary artery systolic pressure is 47 mmHg.
5. In January 2023 the ejection fraction was 55 to 60%. The mean mitral valve gradient was 7 mmHg with mild mitral regurgitation, and the pulmonary artery systolic pressure was 42-44 mmHg.
Discharge Plan
-
Patient Disposition: Home (Routine Discharge)
Discharge Diagnosis/Procedures: Acute cerebrovascular accident
Condition: Good
Diet: Low Cholesterol, 2 Gram Sodium and Restrict fluids to 64 oz
Activity: As tolerated
Driving Restrictions: Not until seen by your Dr
Bathing Restrictions: None
Other Services: PT and OT
Activity Restrictions/Additional Instructions:
1. Please stop smoking. This highly increases your risk for another stroke. Please speak to your PCP to help you with this. In addition, please discuss low dose chest CT scanning apart of new guidelines for lung cancer screening.
2. Please speak to your PCP about better cholesterol management. Considering you are statin intolerant, you may need to discuss other forms of cholesterol medications for a goal LDL to <70 (currently 125). This will also decrease your risk for
another stroke in the future.
3. Please take Xarelto regularly as the most likely cause of the stroke was from being off the blood thinners. You do not need to take aspirin in addition to Xarelto unless told otherwise by a specialist at a later time.
4. Please speak to your PCP about your anemia and colon cancer screening.
5. Pulmonary artery pressure was noted to be high on your echocardiogram which can indicate obstructive sleep apnea (VERO). If you suffer from day time sleepiness, snoring, waking up in the middle of night gasping for air, please consider discussing
VERO with your PCP.
Instructions: Stroke (DC), Quitting smoking for adults
Referrals:
Margi Muniz MD [Family Provider, Internal Medicine] - in less than 1 week
Prescriptions:
New
(DME) Physical therapy
See Rx Instructions .ROUTE .MEDSUPPLY Qty: 1 0RF
Rx Instructions:
Please evaluate and treat
Diagnosis: acute CVA
Please send reports to PCP Dr. Margi Muniz MD NPI #[id number]
ezetimibe 10 mg Tablet
10 mg PO HS Qty: 30 0RF
Continued
Xarelto 20 mg Tablet
20 mg PO QPM 30 Days Qty: 30 0RF
furosemide [Lasix] 40 mg tablet
40 mg PO DAILY Qty: 30 0RF
multivitamin Tablet
1 tab PO DAILY Qty: 0 0RF
lisinopril 20 mg Tablet
20 mg PO DAILY Qty: 0 0RF
allopurinol 100 mg Tablet
100 mg PO DAILY Qty: 0 0RF
spironolactone 25 mg Tablet
25 mg PO DAILY Qty: 0 0RF
carvedilol 3.125 mg Tablet
3.125 mg PO BID Qty: 0 0RF
clonazepam [Klonopin] 2 mg Tablet
2 mg PO HS Qty: 0 0RF
clonazepam 2 mg Tablet
2 mg PO DAILYPRN PRN (Reason: anixety)
coQ10 (ubiquinol) 100 mg Capsule
100 mg PO DAILY
Discontinued
aspirin 325 mg Tablet
325 mg PO DAILYPRN PRN (Reason: mild pain)
Discharge Date and Time
Print Language: ESTONIAN
--- NOTE | 2025-02-26 12:32 | PTOTSP ---
Speech-Language Evaluation
Pt seen for bedside swallow evaluation and cognitive-communication assessment. Pt managed regular solids and thin liquids with adequate mastication, good oral clearance, and no overt s/sx of aspiration. Pt at an elevated risk of aspiration given
recent dx of acute CVA. MRI revealed small left posterior frontal lobe acute infarct and tiny para midline left parietal cortical infarct.�Pt achieved [address] [place] [address] Cognitive Assessment - Version 8.1 (MOCA) yielding cognitive-communicative skills
that are within functional limits (>26 considered normal).�
Recommend:
1. IDDSI level 7 Regular Solids, IDDSI level 0 Thin liquids
2. Medication as best tolerated
3. Standard aspiration precautions
4. Pt demonstrates functional cognitive-communicative skills. ST signing off.�
--- NOTE | 2025-02-26 12:32 | W.PN.UPDATE ---
Update Note
Progress Note Update
Patient cleared for discharge. Discussed with neurology Dr. Marshall. There is a small left posterior frontal lobe acute infarct and a tiny paramidline left parietal cortical infarct. Bilateral carotid's less than 50% stenosis. Will discharge with
instructions to continue Xarelto, Zetia 10 and smoking cessation. Imaging as noted below:
Head and neck CTA 02/25/2025:
Calcific atherosclerotic changes involving the carotid bulbs and proximal internal carotid arteries bilaterally likely without hemodynamically significant stenosis, suggest Carotid ultrasound for more complete atherosclerotic plaque evaluation.
Dominant left vertebral artery. No findings to suggest internal carotid artery or vertebral artery dissection bilaterally.
Next findings to suggest proximal intracranial arterial stenosis bilaterally.
Carotid ultrasound 02/26/2025:
Minimal calcified carotid bulb plaque on each side, measurements suggestive of less than 50% stenosis on each side as per modified Society of Radiologists in Ultrasound consensus criteria (IAC carotid criteria white paper, 2020).
Brain MRI 02/26/2025:
Small left posterior frontal lobe acute infarct. Tiny para midline left parietal cortical infarct.
No mass effect. No midline shift.
Moderate to advanced chronic microvascular white matter ischemic change.
Mild to moderate atrophy.
There is a short segment of the right V4 vertebral artery segment with subtle loss of normal intraluminal flow void, suggesting focal plaque formation with stenosis/occlusion. This is also suggested in retrospect on CT angiography performed the
previous day.
Echocardiogram 02/25/2025:
1. Mild to moderate left ventricular hypertrophy with preserved systolic function, ejection fraction 57%.
2. Status post mitral valve repair, peak/mean gradients 35/13 mmHg with mild mitral regurgitation. The mitral valve area is 1.9 cm 2 by pressure half-time.
3. Aortic sclerosis with trace aortic regurgitation.
4. Mildly dilated right ventricle with preserved systolic function, pulmonary artery systolic pressure is 47 mmHg.
5. In January 2023 the ejection fraction was 55 to 60%. The mean mitral valve gradient was 7 mmHg with mild mitral regurgitation, and the pulmonary artery systolic pressure was 42-44 mmHg.
[2025-02-26 14:32] VITALS: BP 127/60
--- NOTE | 2025-02-26 14:41 | CM ---
CM reviewed chart, patient seen bedside, initial assessment completed. Patient resides with his in a multiple story home, one step to enter. Patient is independent with ADLs/IADLs, drives, no device used. Patient denies VN/SNF hx. PCP Margi
Flavio, Pharmacy [facility] [address] Confirms prescription coverage, denies insecurities at home. PT/OT recommending outpatient therapy, patient agreeable, script provided in chart.
Cost of Pradaxa 150 mg BID obtained from [facility]- $79.10 on month supply, update to Resident.
Patient for discharge today, daughter to transport home. IMM provided upon admissions 02/25 12:34 p.m.
Plan; home with outpatient PT/OT
== END 2025-02-26 15:13 | disposition home or self-care (01) | DRG 65 ==
LOC: 4 WEST ACU 14:12
PROVIDERS: ADMITTING PHYSICIAN Internal Medicine; CONSULT PHYSICIAN Psychiatry & Neurology Neurology; EMERGENCY PHYSICIAN Emergency Medicine; FAMILY PHYSICIAN Student in an Organized Health Care Education/Training Program
DX: I63.512 Cerebral infarction due to unspecified occlusion or stenosis of left middle cerebral artery (principal); G81.91 Hemiplegia, unspecified affecting right dominant side; I50.42 Chronic combined systolic (congestive) and diastolic (congestive) heart failure; I48.0 Paroxysmal atrial fibrillation; I11.0 Hypertensive heart disease with heart failure; D64.9 Anemia, unspecified; F17.200 Nicotine dependence, unspecified, uncomplicated; G25.81 Restless legs syndrome; M10.9 Gout, unspecified; Z66 Do not resuscitate; E78.5 Hyperlipidemia, unspecified; J40 Bronchitis, not specified as acute or chronic; Z71.6 Tobacco abuse counseling; Z79.01 Long term (current) use of anticoagulants; Z79.899 Other long term (current) drug therapy
CPT/HCPCS: 70496; 70498; 70551; 80053; 80061; 82607; 82728; 83036; 83540; 83550; 84439; 84443; 85025; 92523; 92610; 93005; 93306; 93880; 94640; 97161; 97166; 99285; Q9967